=== PATIENT | female | born 1950 | race Caucasian/White ===

== ENCOUNTER 2021-05-18 13:51 | Inpatient (IN) ==
[2021-05-18] MEDS ORDERED: IOPAMIDOL 100 ML BOTTLE IV ONE (13:52)
[2021-05-18] MEDS ORDERED: ONDANSETRON 4 MG/2 ML VIAL IV ONE (14:02)
[2021-05-18] MEDS ORDERED: 0.9 % SODIUM CHLORIDE 1,000 ML IV ONE (14:02)
--- NOTE | 2021-05-18 14:09 | Emergency Department Note ---
Abdominal Pain HPI General Chief Complaint: Abdominal Pain Stated Complaint: RUQ Pain Time Seen by Provider: 05/18/21 13:53 Source: patient Mode of arrival: ambulatory Limitations: no limitations History of Present Illness HPI Narrative: Naz is a 71-year-old female who comes to the emergency department with compl aints of right lower quadrant abdominal pain worse with movement that is persisted ever since she woke up this morning at around 7 AM. The patient is complaining of nausea but has not vomited. She denies fever, urinary or bowel issues, or pain that radiates into her shoulder. She does not have any history of abdominal surgeries. The patient states that on the car ride over she did not notice any worsening discomfort but states that her pain is exacerbated when she stands and relieved when she lays back. She does not recall any harsh physical activity over the last few days but does report that she has been moving some televisions around in her home with her . She is not complaining of any back pain. Patient's not complaining of any urgency or frequency and has no history of kidney or ureteral stones. She states that initially she thought that she felt pain on the contralateral side of her right abdomen. She is not actively vomiting or retching in the emergency department. She has no other complaints today in the ER. No other modifying factors. MD Complaint: abdominal pain Related Data Home Medications Medication Instructions Recorded Confirmed pravastatin 80 mg tablet 40 mg PO QHS tab 04/06/21 Previous Rx's Medication Instructions Recorded hydrochlorothiazide 25 mg tablet 25 mg PO QDAY #90 tab 01/24/21 liothyronine 5 mcg tablet 5 mcg PO QDAY #90 tab 01/24/21 losartan 100 mg tablet 100 mg PO QDAY #90 tab 01/24/21 levothyroxine 137 mcg tablet 137 mcg PO QDAY #90 tab 01/31/21 amlodipine 10 mg tablet 10 mg PO QDAY #90 tab 03/14/21 carvedilol 12.5 mg tablet 6.25 mg PO DAILY #45 tab 04/06/21 Allergies Allergy/AdvReac Type Severity Reaction Status Date / Time Sulfa (Sulfonamide AdvReac Unknown Unknown Verified 05/18/21 13:53 Antibiotics) Review of Systems ROS ROS Narrative: Narrative: All systems ED: reviewed and negative except as stated. [facility] Narrative Patient History Narrative: Narrative: Medical/Surgical/Family History All Active Problems (Updated 05/18/21 @ 16:52 by Dae Mullen PA-C) Acute appendicitis (Acute) Lumbar stenosis with neurogenic claudication (Chronic) Chronic pain (Chronic) Hypertension (Chronic) Abnormal findings on diagnostic imaging of other specified body structures (Chronic) Low back pain (Chronic) Other intervertebral disc degeneration, lumbar region (Chronic) Degenerative lumbar disc (Chronic) Lumbar pain on palpation (Chronic) Medicare annual wellness visit, initial (Chronic) GERD with esophagitis (Chronic) Chest pain, atypical (Chronic) Hypokalemia (Chronic) Polymyalgia rheumatica syndrome (Chronic) Trochanteric bursitis, right hip (Chronic) Gastric ulcer requiring drug therapy (Chronic) Obesity (Chronic) Hypothyroidism, acquired (Chronic) Hypertension, essential (Chronic) Hyperlipemia (Chronic) DJD (degenerative joint disease) (Chronic) Medical History Abnormal findings on diagnostic imaging of other specified body structures Aftercare following joint replacement surgery Right Chest pain, atypical Chronic pain DJD (degenerative joint disease) HIP, L forefoot, knee Gastric ulcer requiring drug therapy Hyperlipemia Hypertension Hypertension, essential Hypothyroidism, acquired Low back pain Lumbar stenosis with neurogenic claudication Medicare annual wellness visit, initial Obesity Other intervertebral disc degeneration, lumbar region Polymyalgia rheumatica syndrome Trochanteric bursitis, right hip Surgical History History of colonoscopy (12/19/16) History of hammertoe correction History of surgery Right shoulder joint replacement History of total bilateral knee replacement Hx of biopsy (09/26/13) Bone-left hand metatarsal Hx of hysterectomy Hx of LASIK both eyes Hx of tonsillectomy Family History brother Cardiovascular disease age 44 CVA (cerebral vascular accident) Parkinson disease mother Cardiovascular disease multiple family members Diabetes mellitus sister Malignant neoplasm of esophagus Social History Smoking Status: Former smoker Alcohol Intake Frequency: does not drink Substance Use: does not use Exam Narrative Narrative: Narrative: General Limitations: no limitations General appearance: Present alert Head Head: Present atraumatic, normocephalic and normal inspection Eye Eye: Present normal appearance, PERRL and EOMI ENT ENT: Present normal exam, normal oropharynx and mucous membranes moist Neck Neck: Present normal inspection, full ROM and trachea midline Chest Chest: Present normal inspection and symmetric chest wall rise Respiratory Respiratory: Present normal lung sounds bilaterally and respiratory distress Cardiovascular Cardiovascular: Present regular rate and normal rhythm Adbominal Abdominal: Present rebound and tenderness at McBurney's Point Extremities Extremities: Present normal inspection, full ROM and normal capillary refill Back Back: Present normal inspection and full ROM Neurological Neurological: Present alert, oriented X3 and normal gait Psychiatric Psychiatric: Present normal affect and normal mood Skin Skin: Present warm (WNL), dry and normal color Course Course Course Narrative: 1409: IV placed, fluids been ordered for rehydration, Zofran for nausea. Patient has been offered pain medicine in the emergency department but at this point time she has rejected it. Basic labs been ordered as well as a urinalysis and a CT scan of the abdomen and pelvis has been ordered for evaluation of acute abdomen. 1544: Labs been reviewed and the patient does have an elevated white blood cell count of 15,[address] scan of the abdomen and pelvis was read back by the radiologist which shows severe acute appendicitis with inflamed pancreas measuring approximately 3 times its normal size. There is concern for rupture. After discussion of the CT scan findings I talked with Dr. Smith with general surgery who is going to evaluate the patient. Zosyn has been ordered fo r prophylaxis against infection and morphine has been given for pain. 1649: Patient seen by Dr. Smith and taken to the OR. Vital Signs Vital signs: Vital Signs Temperature 97.0 F 05/18/21 13:52 Pulse Rate 88 05/18/21 13:52 Respiratory Rate 18 05/18/21 13:52 Blood Pressure 184/83 05/18/21 13:52 Pulse Oximetry (%) 96 05/18/21 13:52 Temperature 97.0 F 05/18/21 13:52 Pulse Rate 89 05/18/21 16:17 Respiratory Rate 16 05/18/21 14:31 Blood Pressure 159/90 05/18/21 16:17 Pulse Oximetry (%) 96 05/18/21 16:17 [facility] Narrative Medical decision making narrative: 71-year-old female presents to the emergency department with abdominal pain onset early this morning located in her right lower quadrant. Patient had rebound tenderness on exam as well as elevated white blood cell count with left shift. CT scan of the abdomen and pelvis revealed a severe acute appendicitis that was near prerupture so general surgery was consulted and is now taking her to the OR for appendectomy. Patient was given Zosyn as well as fluid, Zofran, and morphine for pain in the ER. Patient discussed with Dr. Mann. Assessment: Acute appendicitis. Treatment: Patient taken to surgery by Dr. Smith. Fluid, zofran, morphine, and zosyn given in the ER for pain and infection. Lab Data Result diagrams: 05/18/21 14:20 05/18/21 14:20 Labs: Lab Results 05/18/21 05/18/21 05/18/21 Range/Units 14:01 14:20 14:20 WBC 15.1 H (4.5-11.0) K/mcL RBC 4.62 (3.59-5.38) M/mcL Hgb 13.2 (11.2-15.7) g/dL Hct 39.2 (34.1-44.9) % MCV 84.8 (80.0-100.0) fL MCH 28.6 (26.0-34.0) pg MCHC 33.7 (31.0-36.0) g/dL RDW 13.3 (11.5-14.5) % Plt Count 381 (140-440) K/mcL MPV 10.9 H (7.4-10.4) fL Neut % (Auto) 78.6 H (38.0-78.0) % Lymph % (Auto) 14.3 L (15.5-49.0) % [place] % (Auto) 5.5 (1.0-12.0) % Eos % (Auto) 1.1 (0.0-7.0) % Baso % (Auto) 0.5 (0.0-2.0) % Lymph # (Auto) 2.17 (1.50-4.80) K/mcL [place] # (Auto) 0.84 (0.10-0.90) K/mcL Eos # (Auto) 0.16 (0.00-0.70) K/mcL Baso # (Auto) 0.08 (0.00-0.30) K/mcL Absolute Neutrophils 11.89 H (1.80-8.00) K/mcL Sodium 133 (133-145) mmol/L Potassium 3.3 (3.3-5.1) mmol/L Chloride 97 (96-108) mmol/L Carbon Dioxide 22 (22-30) mmol/L Anion Gap 14.0 (8.0-16.0) BUN 14 (8-23) mg/dL Creatinine 0.7 (0.6-1.1) mg/dL POC Creatinine (0.6-1.2) mg/dL GFR Calculation 86 Glucose 96 (70-105) mg/dL Calcium 9.1 (8.6-10.4) mg/dL Total Bilirubin 0.6 (0.1-1.0) mg/dL AST 23 (<32) U/L ALT 44 H (<40) U/L Alkaline Phosphatase 107 (39-117) U/L Total Protein 6.7 (5.9-8.4) gm/dL Albumin 4.0 (3.2-5.2) gm/dL Globulin 2.7 (2.2-3.7) gm/dL Albumin/Globulin Ratio 1.5 (1.0-2.3) Urine Color Yellow Urine Appearance Hazy A (Clear) Urine pH 6.0 (5.0-9.0) Ur Specific [place] 1.009 (1.000-1.035) Urine Protein Negative (Negative) mg/dL Urine Glucose (UA) Negative (Negative) mg/dL Urine Ketones Negative (Negative) mg/dL Urine Occult Blood Negative (Negative) mg/dL Urine Nitrate Negative (Negative) Urine Bilirubin Negative (Negative) mg/dL Urine Urobilinogen Negative mg/dL Ur Leukocyte Esterase Negative (Negative) /uL Ur Culture Indicated? No 05/18/21 Range/Units 14:20 WBC (4.5-11.0) K/mcL RBC (3.59-5.38) M/mcL Hgb (11.2-15.7) g/dL Hct (34.1-44.9) % MCV (80.0-100.0) fL MCH (26.0-34.0) pg MCHC (31.0-36.0) g/dL RDW (11.5-14.5) % Plt Count (140-440) K/mcL MPV (7.4-10.4) fL Neut % (Auto) (38.0-78.0) % Lymph % (Auto) (15.5-49.0) % [place] % (Auto) (1.0-12.0) % Eos % (Auto) (0.0-7.0) % Baso % (Auto) (0.0-2.0) % Lymph # (Auto) (1.50-4.80) K/mcL [place] # (Auto) (0.10-0.90) K/mcL Eos # (Auto) (0.00-0.70) K/mcL Baso # (Auto) (0.00-0.30) K/mcL Absolute Neutrophils (1.80-8.00) K/mcL Sodium (133-145) mmol/L Potassium (3.3-5.1) mmol/L Chloride (96-108) mmol/L Carbon Dioxide (22-30) mmol/L Anion Gap (8.0-16.0) BUN (8-23) mg/dL Creatinine (0.6-1.1) mg/dL POC Creatinine 0.6 (0.6-1.2) mg/dL GFR Calculation Glucose (70-105) mg/dL Calcium (8.6-10.4) mg/dL Total Bilirubin (0.1-1.0) mg/dL AST (<32) U/L ALT (<40) U/L Alkaline Phosphatase (39-117) U/L Total Protein (5.9-8.4) gm/dL Albumin (3.2-5.2) gm/dL Globulin (2.2-3.7) gm/dL Albumin/Globulin Ratio (1.0-2.3) Urine Color Urine Appearance (Clear) Urine pH (5.0-9.0) Ur Specific [place] (1.000-1.035) Urine Protein (Negative) mg/dL Urine Glucose (UA) (Negative) mg/dL Urine Ketones (Negative) mg/dL Urine Occult Blood (Negative) mg/dL Urine Nitrate (Negative) Urine Bilirubin (Negative) mg/dL Urine Urobilinogen mg/dL Ur Leukocyte Esterase (Negative) /uL Ur Culture Indicated? ED POC Tests ED POC Tests: EVARISTO - SARS Antigen Negative Discharge Plan Patient/Caregiver Discharge Instructions Pt seen by CEO ZIFF DAVIS/PA only: Yes Clinical Impression: Acute appendicitis Instructions: Acute Abdominal Pain (ED) Patient Disposition: Xfer As Inpt ([facility]) Follow up with: Teja Alejo DO [Primary Care Provider] - Prescriptions: No Action losartan 100 mg tablet 100 mg PO QDAY Qty: 90 1RF liothyronine 5 mcg tablet 5 mcg PO QDAY Qty: 90 1RF hydrochlorothiazide 25 mg tablet 25 mg PO QDAY Qty: 90 1RF levothyroxine 137 mcg tablet 137 mcg PO QDAY Qty: 90 1RF amlodipine 10 mg tablet 10 mg PO QDAY Qty: 90 1RF pravastatin 80 mg tablet 40 mg PO QHS 0RF carvedilol 12.5 mg tablet 6.25 mg PO DAILY Qty: 45 3RF
[2021-05-18 15:16] LABS: Basophils # (Auto) 0.08 K/mcL (0.00-0.30); Basophils % (Auto) 0.5 % (0.0-2.0); Eosinophils # (Auto) 0.16 K/mcL (0.00-0.70); Eosinophils % (Auto) 1.1 % (0.0-7.0); Hematocrit 39.2 % (34.1-44.9); Hemoglobin 13.2 g/dL (11.2-15.7); Lymphocytes # (Auto) 2.17 K/mcL (1.50-4.80); Lymphocytes % (Auto) 14.3 % (15.5-49.0); Mean Cell Volume 84.8 fL (80.0-100.0); Mean Corpuscular HGB Conc 33.7 g/dL (31.0-36.0); Mean Platelet Volume 10.9 fL (7.4-10.4); Monocytes # (Auto) 0.84 K/mcL (0.10-0.90); Monocytes % (Auto) 5.5 % (1.0-12.0); Neutrophils % (Auto) 78.6 % (38.0-78.0); Platelet Count 381 K/mcL (140-440); RBC 4.62 M/mcL (3.59-5.38); Red Cell Distribution Width 13.3 % (11.5-14.5); WBC 15.1 K/mcL (4.5-11.0)
[2021-05-18 15:21] LABS: Appearance,Urine HAZY (Clear); Bilirubin,Urine Negative (Negative); Color,Urine YELLOW; Culture Indicated,Urine No; Glucose,Urine (UA) Negative (Negative); Ketones,Urine Negative (Negative); Leukocyte Esterase,Urine Negative /uL (Negative); Nitrate,Urine Negative (Negative); Protein,Urine Negative (Negative); Specific Gravity,Urine 1.009 (1.000-1.035); Urine Blood Negative (Negative); Urobilinogen,Urine Negative
[2021-05-18 15:33] LABS: ALT/SGPT 44 U/L (<40); AST/SGOT 23 U/L (<32); Albumin/Globulin Ratio 1.5 (1.0-2.3); Alkaline Phosphatase 107 U/L (39-117); Bilirubin,Total 0.6 mg/dL (0.1-1.0); Blood Urea Nitrogen 14 mg/dL (8-23); Calcium 9.1 mg/dL (8.6-10.4); Carbon Dioxide 22 mmol/L (22-30); Chloride 97 mmol/L (96-108); Globulin 2.7 gm/dL (2.2-3.7); Glomerular Filtration Rate 86; Glucose 96 mg/dL (70-105)
[2021-05-18] MEDS ORDERED: PIPERACILLIN SODIUM/TAZOBACTAM 3.375 GM in DEXTROSE 5% IN WATER 50 ML IV ONE (15:43)
[2021-05-18] MEDS ORDERED: morphine 4 MG/ML VIAL IV PRN (15:44)
--- NOTE | 2021-05-18 15:44 | Cat Scan Report ---
CLINICAL INFORMATION: Right lower quadrant pain and rebound tenderness COMPARISON: None. TECHNIQUE: Following enteric contrast, 80 cc of Isovue-370 were injected intravenously, and 60 seconds later, 0.625 mm helical slices were obtained from the mid heart through the subtrochanteric regions. Following reconstruction, 2.5 mm sagittal, coronal and axial reformatted images were processed and reviewed at bone, lung and soft tissue windows. Five minutes later, 0.625 mm helical slices were obtained from the mid heart through the kidneys and viewed at soft tissue windows.The exam was performed using radiation dose optimization techniques including, but not limited to, automated exposure control, adjustment of the mA and/or kV according to patient size and use of iterative reconstruction technique. FINDINGS: The lung bases are clear. No effusions. The visualized heart is grossly normal. Moderate hiatal hernia consisting of the gastric fundus appreciated. Abdominal images show the gallbladder is unremarkable. There is mild dilatation of the suprapancreatic common bile duct-9 mm to 2.2 cm periampullary diverticulum may extrinsically compressed intrapancreatic common bile duct. The liver, adrenal glands, spleen, pancreas and aorta, including aortic branches, are normal in size, configuration and attenuation without focal lesion. A 6.1 cm cyst arising from the anterior mid right kidney. It has a single septation in the anterior portion no solid components. The remainder of both kidneys is normal. There is no free air or adenopathy. Pelvic images show normal urinary bladder. Hysterectomy and oophorectomy changes noted. The appendix, located in the medial pericecal region is massively dilated spanning 15 mm. There is also wall thickening and enhancement moderate periappendiceal phlegmon. A long (3 cm) appendicolith is seen in the medial aspect of the appendix. Small and large bowel are unremarkable. Bone windows show no osseous abnormality. IMPRESSION: 1. Severe appendicitis. Appendix located in the medial pericecal region. There is no abscess or other complication. 2. 6.1 cm cyst in the anterior mid right kidney. 3. Moderate hiatal hernia 4. 2.2 cm periampullary diverticulum. This may result in mild extrinsic compression of the intrapancreatic common bile duct. Suprapancreatic bile duct is mildly dilated-9 mm Interpreted and Authenticated by: Teja Sheets 05/18/21
--- NOTE | 2021-05-18 17:27 | General Surgery Consult Note ---
HPI Data of Consult Patient: new to practice Consult date: 05/18/21 Primary Care Provider: Teja Alejo DO Consult Narrative Chief complaint: RLQ Abdominal Pain Reason for consult: Acute Appendicitis History of present illness: Naz is seen in consultation today with onset of increasingly severe RLQ abdominal pain that first came on this morning. The pain worsened throughout the day to the point that she presented to the ER for further work up. CT scan has confirmed findings of Acute Appendicitis and we were asked to see her in consultation. She denies any substantial cardiac or pulmonary issues and is not currently on any oral anticoagulation. She has had a prior Hysterectomy but denies any other abdominal surgery. cc:: CC: Review of Systems All systems: reviewed and no additional remarkable complaints except as stated PFSH PFSH All Active Problems (Updated 05/18/21 @ 16:52 by Dae Mullen PA-C) Acute appendicitis (Acute) Lumbar stenosis with neurogenic claudication (Chronic) Chronic pain (Chronic) Hypertension (Chronic) Abnormal findings on diagnostic imaging of other specified body structures (Chronic) Low back pain (Chronic) Other intervertebral disc degeneration, lumbar region (Chronic) Degenerative lumbar disc (Chronic) Lumbar pain on palpation (Chronic) Medicare annual wellness visit, initial (Chronic) GERD with esophagitis (Chronic) Chest pain, atypical (Chronic) Hypokalemia (Chronic) Polymyalgia rheumatica syndrome (Chronic) Trochanteric bursitis, right hip (Chronic) Gastric ulcer requiring drug therapy (Chronic) Obesity (Chronic) Hypothyroidism, acquired (Chronic) Hypertension, essential (Chronic) Hyperlipemia (Chronic) DJD (degenerative joint disease) (Chronic) Medical History Abnormal findings on diagnostic imaging of other specified body structures Aftercare following joint replacement surgery Right Chest pain, atypical Chronic pain DJD (degenerative joint disease) HIP, L forefoot, knee Gastric ulcer requiring drug therapy Hyperlipemia Hypertension Hypertension, essential Hypothyroidism, acquired Low back pain Lumbar stenosis with neurogenic claudication Medicare annual wellness visit, initial Obesity Other intervertebral disc degeneration, lumbar region Polymyalgia rheumatica syndrome Trochanteric bursitis, right hip Surgical History History of colonoscopy (12/19/16) History of hammertoe correction History of surgery Right shoulder joint replacement History of total bilateral knee replacement Hx of biopsy (09/26/13) Bone-left hand metatarsal Hx of hysterectomy Hx of LASIK both eyes Hx of tonsillectomy Family History brother Cardiovascular disease age 44 CVA (cerebral vascular accident) Parkinson disease mother Cardiovascular disease multiple family members Diabetes mellitus sister Malignant neoplasm of esophagus Social History marital status: education level: high school occupational status: retired physical activity: walking and aerobics frequency: 5-6 times per week smoking status: Former smoker quit date: 03/12/80 alcohol intake frequency: does not drink substance use type: does not use MEDS/ALLERGIES Home Medications and Allergies Home Medications Medication Instructions Recorded Confirmed Type hydrochlorothiazide 25 mg tablet 25 mg PO QDAY #90 tab 01/24/21 04/06/21 Rx liothyronine 5 mcg tablet 5 mcg PO QDAY #90 tab 01/24/21 04/06/21 Rx losartan 100 mg tablet 100 mg PO QDAY #90 tab 01/24/21 04/06/21 Rx levothyroxine 137 mcg tablet 137 mcg PO QDAY #90 tab 01/31/21 04/06/21 Rx amlodipine 10 mg tablet 10 mg PO QDAY #90 tab 03/14/21 04/06/21 Rx carvedilol 12.5 mg tablet 6.25 mg PO DAILY #45 tab 04/06/21 04/06/21 Rx pravastatin 80 mg tablet 40 mg PO QHS tab 04/06/21 History Allergies Allergy/AdvReac Type Severity Reaction Status Date / Time Sulfa (Sulfonamide AdvReac Unknown Unknown Verified 05/18/21 13:53 Antibiotics) Physical Examination Vital Signs Vital signs: Temp Pulse Resp BP Pulse Ox 97.0 F 89 16 159/90 96 05/18/21 13:52 05/18/21 16:17 05/18/21 14:31 05/18/21 16:17 05/18/21 16:17 General physical appearance General physical exam: well developed and no distress Eyes Eye exam: normal ocular movement Head Head exam IM: Present atraumatic, normal inspection and normocephalic Neck Neck exam: no lymphadenopathy Cardiovascular Cardiovascular exam IM: Present normal rate and rhythm and RRR Respiratory Respiratory exam: normal respiratory effort Abdomen Abdomen: Present soft (focal tenderness and guarding in the RLQ with remainder of belly soft and benign ) Integumentary Integumentary: Present other (normal appearing intact skin ) Neurologic Neurologic: Present other (awake, conversant and grossly intact ) Results Labs Result diagrams: 05/18/21 14:20 05/18/21 14:20 Labs: Abnormal lab results 05/18/21 05/18/21 05/18/21 Range/Units 14:01 14:20 14:20 WBC 15.1 H (4.5-11.0) K/mcL MPV 10.9 H (7.4-10.4) fL Neut % (Auto) 78.6 H (38.0-78.0) % Lymph % (Auto) 14.3 L (15.5-49.0) % Absolute Neutrophils 11.89 H (1.80-8.00) K/mcL ALT 44 H (<40) U/L Urine Appearance Hazy A (Clear) Diabetes panel 05/18/21 Range/Units 14:20 Sodium 133 (133-145) mmol/L Potassium 3.3 (3.3-5.1) mmol/L Chloride 97 (96-108) mmol/L Carbon Dioxide 22 (22-30) mmol/L BUN 14 (8-23) mg/dL Creatinine 0.7 (0.6-1.1) mg/dL Glucose 96 (70-105) mg/dL Calcium 9.1 (8.6-10.4) mg/dL AST 23 (<32) U/L ALT 44 H (<40) U/L Alkaline Phosphatase 107 (39-117) U/L Total Protein 6.7 (5.9-8.4) gm/dL Albumin 4.0 (3.2-5.2) gm/dL Calcium panel 05/18/21 Range/Units 14:20 Calcium 9.1 (8.6-10.4) mg/dL Albumin 4.0 (3.2-5.2) gm/dL Pituitary panel 05/18/21 Range/Units 14:20 Sodium 133 (133-145) mmol/L Potassium 3.3 (3.3-5.1) mmol/L Chloride 97 (96-108) mmol/L Carbon Dioxide 22 (22-30) mmol/L BUN 14 (8-23) mg/dL Creatinine 0.7 (0.6-1.1) mg/dL Glucose 96 (70-105) mg/dL Calcium 9.1 (8.6-10.4) mg/dL Adrenal panel 05/18/21 Range/Units 14:20 Sodium 133 (133-145) mmol/L Potassium 3.3 (3.3-5.1) mmol/L Chloride 97 (96-108) mmol/L Carbon Dioxide 22 (22-30) mmol/L BUN 14 (8-23) mg/dL Creatinine 0.7 (0.6-1.1) mg/dL Glucose 96 (70-105) mg/dL Calcium 9.1 (8.6-10.4) mg/dL Total Bilirubin 0.6 (0.1-1.0) mg/dL AST 23 (<32) U/L ALT 44 H (<40) U/L Alkaline Phosphatase 107 (39-117) U/L Total Protein 6.7 (5.9-8.4) gm/dL Albumin 4.0 (3.2-5.2) gm/dL All other labs normal. A/P Assessment and plan (1) Acute appendicitis: Assessment and plan: Acute Appendicitis Treatment options are discussed at length and surgery is recommended. Risks, benefits, potential complications and alternative treatment options are all discussed at length including the option for non operative mgmt. She would like to proceed with surgery and all questions and concerns are addressed. We will start IV ABs, make her NPO and proceed with Laparoscopic Appendectomy at the ORs availability. Status: Acute Time Spent With Patient Time: Total time spent is greater than 50% in coordination of care (as documented) at patient's floor/unit and/or counseling patient:
[2021-05-18] MEDS ORDERED: KETAMINE 50 MG/ML Syringe (ANEST) IV ONE (19:10)
[2021-05-18] MEDS ORDERED: ONDANSETRON 4 MG/2 ML VIAL ONE (19:10)
[2021-05-18] MEDS ORDERED: LIDOCAINE HCL/PF 100 MG/5 ML SYRINGE IV ONE (19:10)
[2021-05-18] MEDS ORDERED: fentaNYL 100 MCG/2 ML VIAL IV ONE (19:10)
[2021-05-18] MEDS ORDERED: PROPOFOL 200 MG/20 ML VIAL IV ONE (19:10)
[2021-05-18] MEDS ORDERED: MAGNESIUM SULFATE 2 GM/50 ML BAG IV ONE (19:10)
[2021-05-18] MEDS ORDERED: DEXAMETHASONE 10 MG/ML VIAL ONE (19:10)
[2021-05-18] MEDS ORDERED: GLYCOPYRROLATE 0.2 MG/ML VIAL IV ONE (19:10)
[2021-05-18] MEDS ORDERED: ceFAZolin 2 GM in DEXTROSE 5% IN WATER 50 ML IV SCH (19:30)
[2021-05-18] MEDS ORDERED: NALOXONE HCL 0.4 MG/ML VIAL IV PRN ×2 (19:34→21:29)
[2021-05-18] MEDS ORDERED: BENZOCAINE/MENTHOL 1 LOZENGE PO PRN (19:34)
[2021-05-18] MEDS ORDERED: LABETALOL 5 MG/ML ML IV PRN (19:34)
[2021-05-18] MEDS ORDERED: METHOCARBAMOL 1,000 MG/10 ML VIAL IV PRN (19:34)
[2021-05-18] MEDS ORDERED: FLUMAZENIL 0.1 MG/ML ML IV PRN (19:34)
[2021-05-18] MEDS ORDERED: METOPROLOL TARTRATE 5 MG/5 ML VIAL IV PRN (19:34)
[2021-05-18] MEDS ORDERED: IPRATROPIUM/ALBUTEROL 3 ML AMPUL.NEB NEB PRN (19:34)
[2021-05-18] MEDS ORDERED: LACTATED RINGERS 250 ML IV PRN (19:34)
[2021-05-18] MEDS ORDERED: HYDROmorphone 0.5 MG/0.5 ML SYRINGE IV PRN (19:34)
[2021-05-18] MEDS ORDERED: ACETAMINOPHEN 1,000 MG/100 ML BAG IV ONE (19:34)
[2021-05-18] MEDS ORDERED: ONDANSETRON 4 MG/2 ML VIAL IV PRN (19:34)
[2021-05-18] MEDS ORDERED: LACTATED RINGERS 1,000 ML IV SCH (19:45)
[2021-05-18] MEDS ORDERED: BUPIVACAINE W/EPI 0.5% 50 ML VIAL IJ ONE (20:21)
[2021-05-18] MEDS: fentaNYL 100 MCG/2 ML VIAL IV PRN ×4 (21:11→21:17)
[2021-05-18] MEDS ORDERED: ACETAMINOPHEN 325 MG TABLET PO PRN (21:29)
--- NOTE | 2021-05-18 21:40 | Brief Operative Note ---
Brief Operative Note Date of procedure: 05/18/21 Pre-op diagnosis: Acute Appendicitis Post-op diagnosis: same Procedure: Laparoscopic Appendectomy Grafts/Implants: No Anesthesia: GETA Findings: acutely inflamed necrotic, gangrenous appendix Complications: none Surgeon: Ehsan Smith Estimated blood loss (cc): 5 Specimens Removed/Pathology: other (appendix ) Condition: stable Disposition: PACU
[2021-05-18] MEDS ORDERED: DEXTROSE 5%-1/2NS W/20MEQ KCL 1,000 ML IV SCH (21:45)
[2021-05-18] MEDS: 0.9 % SODIUM CHLORIDE 10 ML SYRINGE IV SCH (22:14)
[2021-05-18] MEDS: PIPERACILLIN SODIUM/TAZOBACTAM 3.375 GM in DEXTROSE 5% IN WATER 50 ML IV SCH (22:55)
[2021-05-18] MEDS: HYDROmorphone 1 MG/ML SYRINGE IV PRN (23:14)
[2021-05-19] MEDS: ONDANSETRON 4 MG/2 ML VIAL IV PRN ×3 (01:29→12:04)
[2021-05-19] MEDS: oxyCODONE HCL 5 MG TABLET PO PRN ×2 (01:43→05:52)
[2021-05-19] MEDS ORDERED: oxyCODONE HCL 5 MG TABLET PO ONE (01:49)
[2021-05-19] MEDS: PIPERACILLIN SODIUM/TAZOBACTAM 3.375 GM in DEXTROSE 5% IN WATER 50 ML IV SCH ×5 (03:56→23:18)
[2021-05-19] MEDS ORDERED: ONDANSETRON 4 MG/2 ML VIAL ONE (05:34)
[2021-05-19] MEDS: oxyCODONE HCL 5 MG TABLET PO ONE ×2 (05:50→05:52)
[2021-05-19] MEDS: 0.9 % SODIUM CHLORIDE 10 ML SYRINGE IV SCH ×3 (05:52→20:52)
[2021-05-19 06:34] LABS: Hematocrit 38.1 % (34.1-44.9); Hemoglobin 12.9 g/dL (11.2-15.7); Mean Cell Volume 86.4 fL (80.0-100.0); Mean Corpuscular HGB Conc 33.9 g/dL (31.0-36.0); Mean Platelet Volume 10.4 fL (7.4-10.4); Platelet Count 333 K/mcL (140-440); RBC 4.41 M/mcL (3.59-5.38); Red Cell Distribution Width 13.4 % (11.5-14.5); WBC 21.2 K/mcL (4.5-11.0)
[2021-05-19 07:10] LABS: Blood Urea Nitrogen 9 mg/dL (8-23); Calcium 8.2 mg/dL (8.6-10.4); Carbon Dioxide 27 mmol/L (22-30); Chloride 97 mmol/L (96-108); Glomerular Filtration Rate 73; Glucose 168 mg/dL (70-105)
[2021-05-19] MEDS ORDERED: POTASSIUM CHLORIDE 20 MEQ TABLET PO ONE ×2 (08:00→12:00)
--- NOTE | 2021-05-19 10:01 | General Surgery Progress Note ---
SUBJECTIVE Subjective Patient information: Note initiated : 05/19/21 at 9:56 am Service Date, if different from initiated Date: [] Patient: Naz Jeffries 71 y/o F admitted on 05/18/21 for RUQ Pain. Chief Complaint: [POD #1 Lap Appendectomy] Feels poorly this am, nausea and vomiting last night, not keeping anything down, pain is reasonably well controlled, not passing any gas Constitutional Vitals: Vital Signs Temp Pulse Resp BP Pulse Ox 98.9 F 73 23 H 129/68 89 L 05/19/21 08:00 05/19/21 08:00 05/19/21 08:00 05/19/21 08:00 05/19/21 08:00 Period Temp Pulse Resp BP Sys/Farr Pulse Ox Last 24 Hr 96.8 F-99.0 F 62-91 11-23 79-184/38-93 86-99 Intake and Output 05/18/21 05/19/21 05/19/21 21:59 05:59 13:59 Intake Total 3850 250 Output Total 50 505 Balance 3800 -255 Weight 237 lb 8 oz Intake & Output: Intake & Output 05/18/21 05/19/21 05/19/21 21:59 05:59 13:59 Intake Total 3850 250 Output Total 50 505 Balance 3800 -255 Weight 237 lb 8 oz Intake: IV 1150 100 Sodium Chloride 0.9% 1,000 ml @ 1000 Wide Open IV BOLUS ONE Rx#: [id number] Zosyn 3.375 gm In Dextrose 5% 50 100 in Water 50 ml @ 100 mls/hr IV Q6H [facility] Rx#:[id number] Oral 150 IV - Manual Only 2700 Output: Drainage 50 30 Abdomen 50 30 Void Amount 375 Emesis 100 Other: Urine Appearance Clear Urine Color Bright Yellow # Unmeasured Emesis 1 Exam: resting comfortably Head Head exam: Present atraumatic, normal inspection and normocephalic Respiratory Additional comments: no respiratory distress Cardiovascular Cardiovascular exam: Present normal rate and rhythm and RRR GI/Abdominal Additional comments: soft and non distended, obese, drain is slightly turbid but non enteric Extremities Exam Additional comments: well perfused A/P Assessment and plan (1) Acute appendicitis: Assessment and plan: POD #1 Lap Appendectomy Not tolerating orals at this time - will d/c oral pain meds, add additional antiemetics, increase IVFs and make her NPO for now except for ice chips If continues to have emesis, will place NGT and image - ? ileus vs early post op SBO Will also broaden IV AB coverage No discharge planned for today Status: Acute Time Spent With Patient Time: Total time spent is greater than 50% in coordination of care (as documented) at patient's floor/unit and/or counseling patient:
[2021-05-19] MEDS: CIPROFLOXACIN 400 MG/200 ML BAG IV SCH ×2 (10:34→20:51)
[2021-05-19] MEDS: PANTOPRAZOLE 40 MG VIAL IV SCH (10:35)
[2021-05-19] MEDS: DEXTROSE 5%-1/2NS W/20MEQ KCL 1,000 ML IV SCH ×4 (10:35→23:22)
[2021-05-19] MEDS: METOCLOPRAMIDE 10 MG/2 ML VIAL IV SCH ×3 (11:58→23:18)
--- NOTE | 2021-05-19 12:31 | Operative Note ---
DATE OF OPERATION: 05/18/2021 PREOPERATIVE DIAGNOSIS: Acute appendicitis. POSTOPERATIVE DIAGNOSIS: Acute appendicitis. OPERATIVE PROCEDURE: Laparoscopic appendectomy with washout and drain placement. SURGEON: Ehsan Smith M.D. ANESTHESIA: General. PREOPERATIVE MEDICATIONS: Zosyn 3.375 g IV and Ancef 2 g IV. INDICATIONS FOR PROCEDURE: The patient is a 71-year-old female who presented to the emergency room on 05/18/2021 with what she described as a 1-day history of worsening right lower quadrant pain. She was tender in that area. CT scan confirmed evidence of acute appendicitis. She had focal peritoneal findings in the right lower quadrant. The remainder of abdominal exam was benign. Options were discussed with her including the potential for nonoperative management versus our recommendation for surgery. Risks, benefits, potential complications, and alternative treatment options were all discussed at length, including but not limited to bleeding, infection, cosmetic dissatisfaction, abnormal scarring, potential for injury to surrounding structures, potential need for additional surgery, conversion to open, drain placement, stump leaks, infections and other concerns, and then again we did discuss the option for IV antibiotic management, but we recommended surgery, and she certainly concurred with the recommendation. PROCEDURE IN DETAIL: The patient was taken to the OR and placed supine on the OR table, placed under general anesthesia and intubated. Bilateral SCDs were applied and pressure sensitive areas were carefully padded. Her left arm was tucked at her side. Her right arm was placed on an arm board. The entire OR team worked to position her carefully and comfortably on the OR table. Once her abdomen was widely prepped and draped in a sterile fashion, procedure began with access to the peritoneal cavity utilizing a 0-degree, 5 mm scope through a Visiport in the right upper abdomen. Once we had obtained peritoneal access, pneumoperitoneum was obtained with high-flow CO2 insufflation, again, utilizing the 0-degree scope with a 5 mm trocar in the right upper abdomen. We then examined carefully the area of access to make sure there was no evidence of injury; none was seen. We then changed out the 0-degree scope for a 30-degree scope and placed our remaining trocars. This included a 5 mm periumbilical trocar and a 5 mm left lower abdominal trocar as well. We then changed out the 5 mm right upper abdominal trocar for a 12 mm trocar after re-siting the camera to the periumbilical trocar. We then airplaned the patient towards the left side in a slight Trendelenburg position, and we were able to visualize the right colon and the base of the cecum. Bowel was fairly adherent here. It was gently dissected away to reveal a highly gangrenous and necrotic and already ruptured appendix with evidence of some localized contamination. There was fulminant gangrene and necrosis throughout. We were able to dissect bluntly adhesions, including the bowel away from this. I was able to visualize the cecum and the terminal ileum entering the cecum at the ileocecal valve. We elevated the appendix away from this area. She had a very broad and inflamed mesoappendix. This was taken down with sequential transection utilizing the 35 mm endovascular Onset Flex stapler. After we had fully mobilized the appendix on itself and taken down all the areas of the mesoappendix, we could visualize a very necrotic appendiceal base down to a confluent area of necrosis on the cecum itself. We brought the intended staple line just below this, making sure that the ileocecal valve appeared to be well clear, which it did from external landmarks and then went ahead and transected the appendix, taking a small portion of the cecum with it to leave well-vascularized tissues in the staple line to minimize risk of post-procedural leak. This was done with two sequential stapler loads and this fully liberated the appendix, which was placed in an EndoCatch and then taken out through the right upper abdominal trocar site. It was examined on the back table and sent to Pathology. Additional inspection of the area revealed a large stool-like appendicolith in the area of the dissection bed. It was placed in a separate EndoCatch and removed through the right upper abdominal trocar as well. There was no other visible articular debris in the area. The area was gently irrigated out. There was no evidence of any residual purulence or contamination. I elected to bring a drain in and we brought in a flat 10-Portuguese JIMBO through the left lower abdominal trocar site and positioned it alongside the dissection bed and down in the pelvis. The area was irrigated again. We made sure there was no active bleeding or hemorrhage. There appeared to be none. The staple line was inspected on the cecum itself and it appeared to be well perfused and intact. We then removed the right upper abdominal trocar under direct vision to make sure there was no evidence of bleeding or hemorrhage; none was seen. The 5 mm periumbilical trocar was then removed as well. Pneumoperitoneum was relieved and this completed this portion of the procedure. I then closed the fascia utilizing a single interrupted 0 Vicryl suture at the 12 mm trocar site in the right upper abdomen. We then closed the incisions with interrupted 3-0 Vicryl sutures in the superficial and subdermal layers and the skin was closed with interrupted 4-0 Monocryl sutures where appropriate. Steri-Strips and sterile dressings were applied. The drain was secured in place with a 3-0 silk suture and placed to bulb suction. Sterile dressings were applied. The patient was awakened, extubated, and transferred to PACU in satisfactory condition. There were no apparent complications or issues. Sponge and instrument counts were correct. Findings were discussed above. BW:drew Job ID: [id number] Doc ID: [id number] Ehsan Smith M.D.
[2021-05-19] MEDS: HYDROmorphone 1 MG/ML SYRINGE IV PRN ×2 (14:52→20:52)
[2021-05-20] MEDS: HYDROmorphone 1 MG/ML SYRINGE IV PRN ×2 (01:47→06:52)
[2021-05-20] MEDS: 0.9 % SODIUM CHLORIDE 10 ML SYRINGE IV SCH ×3 (05:17→21:17)
[2021-05-20] MEDS: PIPERACILLIN SODIUM/TAZOBACTAM 3.375 GM in DEXTROSE 5% IN WATER 50 ML IV SCH ×4 (05:17→23:21)
[2021-05-20] MEDS: METOCLOPRAMIDE 10 MG/2 ML VIAL IV SCH ×4 (05:17→23:21)
[2021-05-20 06:39] LABS: Hematocrit 35.8 % (34.1-44.9); Hemoglobin 12.2 g/dL (11.2-15.7); Mean Cell Volume 86.5 fL (80.0-100.0); Mean Corpuscular HGB Conc 34.1 g/dL (31.0-36.0); Mean Platelet Volume 10.6 fL (7.4-10.4); Platelet Count 299 K/mcL (140-440); RBC 4.14 M/mcL (3.59-5.38); Red Cell Distribution Width 13.7 % (11.5-14.5); WBC 18.8 K/mcL (4.5-11.0)
[2021-05-20] MEDS: ONDANSETRON 4 MG/2 ML VIAL IV PRN ×2 (06:54→15:30)
[2021-05-20] MEDS: PANTOPRAZOLE 40 MG VIAL IV SCH (06:56)
[2021-05-20 07:10] LABS: Blood Urea Nitrogen 10 mg/dL (8-23); Calcium 7.9 mg/dL (8.6-10.4); Carbon Dioxide 23 mmol/L (22-30); Chloride 100 mmol/L (96-108); Glomerular Filtration Rate 73; Glucose 119 mg/dL (70-105)
[2021-05-20] MEDS: CIPROFLOXACIN 400 MG/200 ML BAG IV SCH ×2 (08:35→21:16)
--- NOTE | 2021-05-20 09:31 | General Surgery Progress Note ---
SUBJECTIVE Subjective Patient information: Note initiated : 05/20/21 at 9:27 am Service Date, if different from initiated Date: [] Patient: Naz Jeffries 71 y/o F admitted on 05/19/21 for RUQ Pain. Chief Complaint: [POD #2 Lap Appendectomy for Acute Gangrenous Appendicitis] Feeling better this am, hungry, still no flatus Constitutional Vitals: Vital Signs Temp Pulse Resp BP Pulse Ox 97.7 F 85 16 117/66 94 05/20/21 07:10 05/20/21 07:10 05/20/21 07:10 05/20/21 07:10 05/20/21 07:10 Period Temp Pulse Resp BP Sys/Farr Pulse Ox Last 24 Hr 97.3 F-99.3 F 66-85 16-20 109-126/55-71 89-95 Intake and Output 05/19/21 05/20/21 05/20/21 21:59 05:59 13:59 Intake Total 1500 400 50 Output Total 425 185 100 Balance 1075 215 -50 Weight 234 lb 8 oz Intake & Output: Intake & Output 05/19/21 05/20/21 05/20/21 21:59 05:59 13:59 Intake Total 1500 400 50 Output Total 425 185 100 Balance 1075 215 -50 Weight 234 lb 8 oz Intake: IV 1050 250 50 Dextrose 5%-1/2Ns W/20Meq KCl 1 1000 ,000 ml @ 125 mls/hr IV .Q8H DEVIN Rx#:[id number] Zosyn 3.375 gm In Dextrose 5% 50 50 50 in Water 50 ml @ 100 mls/hr IV Q6H DEVIN Rx#:[id number] Oral 450 150 Output: Drainage 25 35 Abdomen 25 35 Void Amount 400 150 100 Other: Urine Appearance Clear Clear Clear Urine Color Dark Yellow Light Lupe Light Lupe Urine Odor Strong General appearance: cooperative and no acute distress Respiratory Additional comments: normal respiratory effort without distress Cardiovascular Cardiovascular exam: Present normal rate and rhythm and RRR GI/Abdominal Additional comments: belly soft and non distended, drain serous and benign in appearance, mild tenderness Extremities Exam Extremities exam: Present normal inspection A/P Assessment and plan (1) Acute appendicitis: Assessment and plan: POD #2 Lap Appendectomy for Acute Gangrenous Appendicitis Doing Better this am WBC down today with addition of IV Cipro Increase activity Small clears ok Will need to stay in another day for IV ABs Status: Acute Time Spent With Patient Time: Total time spent is greater than 50% in coordination of care (as documented) at patient's floor/unit and/or counseling patient:
[2021-05-20] MEDS ORDERED: ACETAMINOPHEN 650 MG/65 ML BAG IV SCH (10:20)
[2021-05-20] MEDS: DEXTROSE 5%-1/2NS W/20MEQ KCL 1,000 ML IV SCH ×2 (10:52→21:54)
[2021-05-20] MEDS: ACETAMINOPHEN 325 MG TABLET PO SCH ×2 (11:00→17:48)
[2021-05-20] MEDS: HYDROCHLOROTHIAZIDE 25 MG TABLET PO SCH (11:00)
[2021-05-21] MEDS: ONDANSETRON 4 MG/2 ML VIAL IV PRN (02:09)
[2021-05-21] MEDS: ACETAMINOPHEN 325 MG TABLET PO SCH ×3 (02:09→18:39)
[2021-05-21] MEDS: PIPERACILLIN SODIUM/TAZOBACTAM 3.375 GM in DEXTROSE 5% IN WATER 50 ML IV SCH (05:27)
[2021-05-21] MEDS: METOCLOPRAMIDE 10 MG/2 ML VIAL IV SCH ×4 (05:27→23:40)
[2021-05-21] MEDS: 0.9 % SODIUM CHLORIDE 10 ML SYRINGE IV SCH ×6 (05:27→23:40)
[2021-05-21 07:04] LABS: Basophils # (Auto) 0.04 K/mcL (0.00-0.30); Basophils % (Auto) 0.2 % (0.0-2.0); Eosinophils # (Auto) 0.07 K/mcL (0.00-0.70); Eosinophils % (Auto) 0.3 % (0.0-7.0); Hemoglobin 13.2 g/dL (11.2-15.7); Lymphocytes # (Auto) 1.48 K/mcL (1.50-4.80); Lymphocytes % (Auto) 6.8 % (15.5-49.0); Mean Cell Volume 85.3 fL (80.0-100.0); Mean Platelet Volume 10.5 fL (7.4-10.4); Monocytes # (Auto) 0.88 K/mcL (0.10-0.90); Neutrophils % (Auto) 88.7 % (38.0-78.0); Platelet Count 376 K/mcL (140-440); RBC 4.69 M/mcL (3.59-5.38); Red Cell Distribution Width 13.3 % (11.5-14.5); WBC 21.9 K/mcL (4.5-11.0)
[2021-05-21 07:33] LABS: Blood Urea Nitrogen 8 mg/dL (8-23); Carbon Dioxide 23 mmol/L (22-30); Chloride 96 mmol/L (96-108); Glomerular Filtration Rate 90; Glucose 131 mg/dL (70-105)
[2021-05-21] MEDS: PANTOPRAZOLE 40 MG VIAL IV SCH ×2 (07:49→20:35)
[2021-05-21] MEDS: PROMETHAZINE 25 MG/ML VIAL IV PRN ×2 (07:49→23:07)
[2021-05-21] MEDS: LEVOTHYROXINE 25 MCG TABLET PO SCH (07:50)
[2021-05-21] MEDS: LEVOTHYROXINE SODIUM 112 MCG TABLET PO SCH (07:50)
[2021-05-21] MEDS ORDERED: HYDROCHLOROTHIAZIDE 25 MG TABLET PO SCH (09:00)
[2021-05-21] MEDS ORDERED: NON FORMULARY MEDICATION 1 DOSE MISCELL (Levothyroxine 137 mcg tablet) PO SCH (09:00)
[2021-05-21] MEDS ORDERED: MAG HYDROX/AL HYDROX/SIMETH 30 ML ORAL.SUSP PO PRN (10:29)
[2021-05-21] MEDS: DEXTROSE 5%-1/2NS W/20MEQ KCL 1,000 ML IV SCH (11:01)
--- NOTE | 2021-05-21 11:05 | General Surgery Progress Note ---
SUBJECTIVE Subjective Patient information: Note initiated : 05/21/21 at 10:57 am Service Date, if different from initiated Date: [] Patient: Naz Jeffries 71 y/o F admitted on 05/19/21 for RUQ Pain. Chief Complaint: [POD #3 Lap Appendectomy] Issues with nausea and vomiting continue, unbable to keep liquids down. Is passing regular amounts of gas, no BM yet Pain is minimal Constitutional Vitals: Vital Signs Temp Pulse Resp BP Pulse Ox 98.1 F 85 16 156/84 92 05/21/21 07:38 05/21/21 07:38 05/21/21 07:38 05/21/21 07:38 05/21/21 07:50 Period Temp Pulse Resp BP Sys/Farr Pulse Ox Last 24 Hr 96.9 F-99.3 F 76-85 16-20 127-157/61-84 91-93 Intake and Output 05/20/21 05/21/21 05/21/21 21:59 05:59 13:59 Intake Total 1200 280 50 Output Total 680 730 350 Balance 520 -450 -300 Weight 239 lb 8 oz Intake & Output: Intake & Output 05/20/21 05/21/21 05/21/21 21:59 05:59 13:59 Intake Total 1200 280 50 Output Total 680 730 350 Balance 520 -450 -300 Weight 239 lb 8 oz Intake: IV 1050 250 50 Dextrose 5%-1/2Ns W/20Meq KCl 1 1000 ,000 ml @ 100 mls/hr IV .Q10H DEVIN Rx#:[id number] Zosyn 3.375 gm In Dextrose 5% 50 50 50 in Water 50 ml @ 100 mls/hr IV Q6H DEVIN Rx#:[id number] Oral 150 30 Output: Drainage 90 Abdomen 90 Drainage 90 330 190 Abdomen 90 330 190 Void Amount 200 100 160 Emesis 300 300 Other: Meal Lunch Percent of Meal Consumed 25% Feeding Ability Independent Urine Appearance Clear Clear Urine Color Dark Yellow Dark Lupe Urine Odor Strong Strong # Unmeasured Emesis 1 Exam: Fully awake and conversant, non toxic in appearance Head Head exam: Present atraumatic and normocephalic Respiratory Additional comments: normal respiratory effort without distress Cardiovascular Cardiovascular exam: Present RRR GI/Abdominal Additional comments: soft and seems non distended but obese, drain is benign serous, non enteric or purulent, minimal tenderness Extremities Exam Additional comments: appear normal and well perfused A/P Narrative A/P Narrative: POD #3 Lap Appendectomy for Necrotic gangrenous Appendicitis Issues with nausea and oral intake - is having some bowel function but concern for ileus vs partial SBO remains Check plain films today - may end up needing Abdominal CT Hold dilaudid and change ABs with ? causative factors Try to be up and OOB more today with small clear sips only Will consider NGT if substantial SB distension Issues discussed and reviewed with patient at length this AM Time Spent With Patient Time: Total time spent is greater than 50% in coordination of care (as documented) at patient's floor/unit and/or counseling patient:
[2021-05-21] MEDS: HYDROCHLOROTHIAZIDE 25 MG TABLET PO SCH (11:27)
[2021-05-21] MEDS: CARVEDILOL 12.5 MG TABLET PO SCH (11:27)
[2021-05-21] MEDS: CIPROFLOXACIN 400 MG/200 ML BAG IV SCH ×2 (11:29→20:35)
--- NOTE | 2021-05-21 12:52 | XRay Report ---
CLINICAL INFORMATION: Eval sbo vs ileus three post appendectomy COMPARISON: Preoperative abdomen and pelvic CT 05/18/2021 FINDINGS: A few loops of small bowel in the central abdomen are mildly dilated with relative decompression of the distal small bowel and colon. There is no pathologic calcification, free air or soft tissue mass. IMPRESSION: Possible developing mid small bowel obstruction. Interpreted and Authenticated by: Teja Sheets 05/21/21
[2021-05-21] MEDS: MEROPENEM 0.5 GM in 0.9 % SODIUM CHLORIDE 50 ML IV SCH ×3 (13:50→23:40)
[2021-05-21] MEDS: DEXTROSE 5%-LR 1,000 ML IV SCH ×2 (13:50→19:23)
[2021-05-21] MEDS ORDERED: KETOROLAC 15 MG/ML VIAL IV PRN (17:55)
[2021-05-22] MEDS: DEXTROSE 5%-LR 1,000 ML IV SCH ×3 (01:09→21:28)
[2021-05-22] MEDS: ACETAMINOPHEN 325 MG TABLET PO SCH ×3 (03:15→19:01)
[2021-05-22] MEDS: METOCLOPRAMIDE 10 MG/2 ML VIAL IV SCH ×3 (05:44→18:57)
[2021-05-22] MEDS: 0.9 % SODIUM CHLORIDE 10 ML SYRINGE IV SCH ×3 (05:44→21:25)
[2021-05-22] MEDS: MEROPENEM 0.5 GM in 0.9 % SODIUM CHLORIDE 50 ML IV SCH ×3 (05:44→19:00)
--- NOTE | 2021-05-22 06:32 | XRay Report ---
CLINICAL INFORMATION: Eval ? SBO NG placement COMPARISON: None. FINDINGS: NG tube overlies the gastric fundus. The stomach and proximal small bowel remain moderately dilated with decompressed distal small bowel and colon. Findings the bowel with mid small bowel obstruction. Surgical drain overlies the pelvic region. There is no free air, soft tissue mass, organomegaly or pathologic calcification. IMPRESSION: Partial mid small bowel obstruction. NG tube overlying the gastric fundus. Interpreted and Authenticated by: Teja Sheets 05/22/21
[2021-05-22 06:40] LABS: Hematocrit 37.5 % (34.1-44.9); Hemoglobin 12.7 g/dL (11.2-15.7); Mean Corpuscular HGB Conc 33.9 g/dL (31.0-36.0); Mean Platelet Volume 10.5 fL (7.4-10.4); Platelet Count 395 K/mcL (140-440); RBC 4.41 M/mcL (3.59-5.38); Red Cell Distribution Width 13.2 % (11.5-14.5); WBC 14.2 K/mcL (4.5-11.0)
[2021-05-22 07:05] LABS: Blood Urea Nitrogen 6 mg/dL (8-23); Calcium 8.3 mg/dL (8.6-10.4); Carbon Dioxide 25 mmol/L (22-30); Chloride 99 mmol/L (96-108); Glomerular Filtration Rate 90; Glucose 129 mg/dL (70-105)
[2021-05-22] MEDS ORDERED: IOPAMIDOL 100 ML BOTTLE IV ONE (08:37)
[2021-05-22] MEDS: PANTOPRAZOLE 40 MG VIAL IV SCH ×2 (08:50→21:19)
[2021-05-22] MEDS: LEVOTHYROXINE 25 MCG TABLET PO SCH (08:51)
[2021-05-22] MEDS: LEVOTHYROXINE SODIUM 112 MCG TABLET PO SCH (08:51)
--- NOTE | 2021-05-22 09:19 | EKG ---
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
[2021-05-22] MEDS: CIPROFLOXACIN 400 MG/200 ML BAG IV SCH ×2 (09:31→21:28)
[2021-05-22] MEDS: HYDROCHLOROTHIAZIDE 25 MG TABLET PO SCH (09:35)
[2021-05-22] MEDS: CARVEDILOL 12.5 MG TABLET PO SCH (09:35)
--- NOTE | 2021-05-22 10:16 | General Surgery Progress Note ---
SUBJECTIVE Subjective Patient information: Note initiated : 05/22/21 at 10:09 am Service Date, if different from initiated Date: [] Patient: Naz Jeffries 71 y/o F admitted on 05/19/21 for RUQ Pain. Chief Complaint: [POD #4 Lap Appendectomy] Large volume emesis in the middle of the night, NGT placed - films this AM consistent with mid Small Bowel Obstruction. Other than the nausea and vomiting, she has felt well without substantial abdominal pain. Constitutional Vitals: Vital Signs Temp Pulse Resp BP Pulse Ox 98.2 F 69 16 146/82 94 05/22/21 07:33 05/22/21 07:33 05/22/21 07:33 05/22/21 07:33 05/22/21 07:33 Period Temp Pulse Resp BP Sys/Farr Pulse Ox Last 24 Hr 98 F-99.3 F 69-86 16-18 140-158/78-86 93-97 Intake and Output 05/21/21 05/22/21 05/22/21 20:59 05:59 13:59 Intake Total 50 Output Total 225 Balance -175 Weight Intake & Output: Intake & Output 05/21/21 05/22/21 05/22/21 20:59 05:59 13:59 Intake Total 50 Output Total 225 Balance -175 Weight Intake: IV 50 Dextrose 5%-Lactated Ringers 1, 000 ml @ 125 mls/hr IV .Q8H DEVIN Rx#:[id number] Merrem 0.5 gm In Sodium 50 Chloride 0.9% 50 ml @ 100 mls/ hr IV Q6H DEVIN Rx#:[id number] Oral Tube Feeding 0 Output: Drainage Abdomen Void Amount 225 Emesis Other: Urine Appearance Clear Urine Color Light Lupe Urine Odor Strong # Voids General appearance: cooperative and no acute distress Respiratory Additional comments: normal respiratory effort without distress Cardiovascular Cardiovascular exam: Present RRR GI/Abdominal Additional comments: soft and non tender, drain is benign serous drainage, non enteric and non purulent Extremities Exam Additional comments: well perfused A/P Narrative A/P Narrative: POD #4 Lap Appendectomy Post Op SBO of ? Etiology Awaiting final CT results Continue NGT drainage, IV ABs, IVF, NPO except meds Issues discussed at length with her - will consider attempt at SBFT to see if that opens things up with a volume contrast load and, if not, then she'll likely require exploration in the next 24-48 hours Time Spent With Patient Time: Total time spent is greater than 50% in coordination of care (as documented) at patient's floor/unit and/or counseling patient:
--- NOTE | 2021-05-22 13:43 | Cat Scan Report ---
CLINICAL INFORMATION: Status post appendectomy. Abdominal pain and distention. Evaluate for small bowel obstruction COMPARISON: Preoperative abdomen and pelvic CT 05/18/2021 TECHNIQUE: Following enteric contrast, 80 cc of Isovue-370 were injected intravenously, and 60 seconds later, 0.625 mm helical slices were obtained from the mid heart through the subtrochanteric regions. Following reconstruction, 2.5 mm sagittal, coronal and axial reformatted images were processed and reviewed at bone, lung and soft tissue windows. Five minutes later, 0.625 mm helical slices were obtained from the mid heart through the kidneys and viewed at soft tissue windows.The exam was performed using radiation dose optimization techniques including, but not limited to, automated exposure control, adjustment of the mA and/or kV according to patient size and use of iterative reconstruction technique. FINDINGS: Moderate subsegmental atelectasis developed in the lung bases. No effusions. The visualized heart is grossly normal. Moderate hiatal hernia consisting of the gastric fundus appreciated. Abdominal images show the gallbladder is unremarkable. There is mild dilatation of the suprapancreatic common bileduct-9 mm to 2.2 cm periampullary diverticulum may extrinsically compressed intrapancreatic common bile duct. The liver, adrenal glands, spleen, pancreas and aorta, including aortic branches, are normal in size, configuration and attenuation without focal lesion. A 6.1 cm cyst arising from the anterior mid right kidney. It has a single septation in the anterior portion, but no solid components. The remainder of both kidneys is normal. There is no free air or adenopathy. Pelvic images show normal urinary bladder. Hysterectomy and oophorectomy changes noted. The appendix is been surgically removed. There is a small amount of edema and free fluid in the former region of the appendix also edema is seen in the [place] fascia anterior abdominal wall. Surgical excision in the right lower quadrant contains a small amount of gas and air as expected. The stomach, duodenum and jejunum are moderately dilated to the level of its stricture in the central mesentery cavity on axial image 123. The distal small bowel is decompressed there is minimal stool seen within the colon. A surgical drain is seen in the left pelvic region. Bone windows show no osseous abnormality. IMPRESSION: 1. High-grade small bowel obstruction of the mid jejunum likely due to a stricture or adhesion. No evidence of third spacing or perforation. 2. Status post appendectomy-typical postoperative appearance with small amounts of fluid in the pericecal region. 3. Moderate hiatal hernia 4. 2.2 cm periampullary diverticulum. This may result in mild extrinsic compression of the intrapancreatic common bile duct. Suprapancreatic bile duct is mildly dilated-9 mm Interpreted and Authenticated by: Teja Sheets 05/22/21
--- NOTE | 2021-05-22 17:49 | XRay Report ---
CLINICAL INFORMATION: Check NG tube placement COMPARISON: None. FINDINGS: NG tube overlies the gastric antrum in satisfactory position. Few loops of mildly dilated small bowel the upper abdomen are compatible high-grade mid jejunal obstruction seen on CT. No free air. IMPRESSION: NG tube in satisfactory position. Partial mid small bowel obstruction Interpreted and Authenticated by: Teja Sheets 05/22/21
[2021-05-22] MEDS: BENZOCAINE/MENTHOL 1 LOZENGE PO PRN (21:18)
[2021-05-23] MEDS: BENZOCAINE/MENTHOL 1 LOZENGE PO PRN ×2 (00:19→04:49)
[2021-05-23] MEDS: METOCLOPRAMIDE 10 MG/2 ML VIAL IV SCH ×4 (00:27→17:50)
[2021-05-23] MEDS: MEROPENEM 0.5 GM in 0.9 % SODIUM CHLORIDE 50 ML IV SCH ×4 (00:27→17:50)
[2021-05-23] MEDS: ACETAMINOPHEN 325 MG TABLET PO SCH ×3 (01:40→17:37)
[2021-05-23] MEDS: DEXTROSE 5%-LR 1,000 ML IV SCH ×3 (03:10→20:07)
[2021-05-23] MEDS: 0.9 % SODIUM CHLORIDE 10 ML SYRINGE IV SCH ×3 (05:06→20:15)
[2021-05-23 06:18] LABS: Hematocrit 37.3 % (34.1-44.9); Hemoglobin 12.2 g/dL (11.2-15.7); Mean Cell Volume 86.3 fL (80.0-100.0); Mean Corpuscular HGB Conc 32.7 g/dL (31.0-36.0); Mean Platelet Volume 10.1 fL (7.4-10.4); Platelet Count 376 K/mcL (140-440); RBC 4.32 M/mcL (3.59-5.38); Red Cell Distribution Width 13.2 % (11.5-14.5); WBC 12.1 K/mcL (4.5-11.0)
[2021-05-23 06:39] LABS: Blood Urea Nitrogen 5 mg/dL (8-23); Calcium 8.1 mg/dL (8.6-10.4); Carbon Dioxide 25 mmol/L (22-30); Chloride 103 mmol/L (96-108); Glomerular Filtration Rate 90; Glucose 101 mg/dL (70-105)
[2021-05-23] MEDS: LEVOTHYROXINE 25 MCG TABLET PO SCH (08:06)
[2021-05-23] MEDS: LEVOTHYROXINE SODIUM 112 MCG TABLET PO SCH (08:06)
[2021-05-23] MEDS: PANTOPRAZOLE 40 MG VIAL IV SCH ×2 (09:02→20:10)
[2021-05-23] MEDS: CIPROFLOXACIN 400 MG/200 ML BAG IV SCH ×2 (09:02→20:14)
[2021-05-23] MEDS ORDERED: DIATRIZOATE MEGLU/DIATRIZO SOD 120 ML BOTTLE PO ONE (12:55)
--- NOTE | 2021-05-23 13:55 | General Surgery Progress Note ---
SUBJECTIVE Subjective Patient information: Note initiated : 05/23/21 at 1:52 pm Service Date, if different from initiated Date: [] Patient: Naz Jeffries 71 y/o F admitted on 05/19/21 for RUQ Pain. Chief Complaint: [POD #5 Lap Appendectomy with post op SBO] Underwent SBFT this am - has had large BMs this am in response to large contrast load reaching the colon but formal study results or prelim report unavailable at this time No pain, hungry, wanting NGT out Constitutional Vitals: Vital Signs Temp Pulse Resp BP Pulse Ox 97.4 F 88 16 151/68 93 05/23/21 12:00 05/23/21 12:00 05/23/21 12:00 05/23/21 12:00 05/23/21 12:00 Period Temp Pulse Resp BP Sys/Farr Pulse Ox Last 24 Hr 97.4 F-98.6 F 80-88 16-22 132-159/68-80 90-94 Intake and Output 05/22/21 05/23/21 05/23/21 21:59 05:59 13:59 Intake Total 50 370 1250 Output Total 1400 700 Balance -1350 -330 1250 Weight 223 lb Intake & Output: Intake & Output 05/22/21 05/23/21 05/23/21 21:59 05:59 13:59 Intake Total 50 370 1250 Output Total 1400 700 Balance -1350 -330 1250 Weight 223 lb Intake: IV 50 250 1250 Dextrose 5%-Lactated Ringers 1, 1000 000 ml @ 125 mls/hr IV .Q8H DEVIN Rx#:[id number] Merrem 0.5 gm In Sodium 50 50 50 Chloride 0.9% 50 ml @ 100 mls/ hr IV Q6H DEVIN Rx#:[id number] Oral 120 Tube Feeding 0 0 Output: Gastric Drainage 1400 200 Left Nare NG/OG 1400 200 Void Amount 500 Other: Urine Appearance Clear Urine Color Bright Yellow Urine Odor Normal Stool Size Large Stool Color Brown Stool Consistency Liquid # Voids 1 # Bowel Movements 1 Exam: looks well, without issue, fully conversant Respiratory Additional comments: normal respiratory efffort without distress Cardiovascular Cardiovascular exam: Present normal rate and rhythm and RRR Extremities Exam Additional comments: well perfused A/P Narrative A/P Narrative: POD #5 Lap Appendectomy with post op SBO SBFT results pending but large volume stool output is a positive finding Leave NGT for now Await final study results Time Spent With Patient Time: Total time spent is greater than 50% in coordination of care (as documented) at patient's floor/unit and/or counseling patient:
--- NOTE | 2021-05-23 14:04 | XRay Report ---
CLINICAL INFORMATION: High-grade mid jejunal obstruction. TECHNIQUE: Gastrografin was infused through indwelling NG tube and serial imaging was obtained over four hours the abdomen and pelvis time: FINDINGS: Small hiatal hernia noted. The stomach, duodenum and jejunum are mildly dilated to the level of the obstruction and the mid jejunum. The small bowel distal to the obstruction is smaller caliber. Small bowel transit time is approximately two hours. IMPRESSION: Mild partial mid jejunal obstruction due to adhesion or stricture. Small bowel transit time approximately two hours Interpreted and Authenticated by: Teja Sheets 05/23/21
[2021-05-23] MEDS: HYDROCHLOROTHIAZIDE 25 MG TABLET PO SCH (14:50)
[2021-05-23] MEDS: CARVEDILOL 12.5 MG TABLET PO SCH (14:50)
[2021-05-24] MEDS: MEROPENEM 0.5 GM in 0.9 % SODIUM CHLORIDE 50 ML IV SCH ×5 (00:21→23:40)
[2021-05-24] MEDS: METOCLOPRAMIDE 10 MG/2 ML VIAL IV SCH ×5 (00:57→23:40)
[2021-05-24] MEDS: ACETAMINOPHEN 325 MG TABLET PO SCH ×3 (02:58→18:56)
[2021-05-24] MEDS: 0.9 % SODIUM CHLORIDE 10 ML SYRINGE IV SCH ×4 (05:57→23:40)
[2021-05-24] MEDS: DEXTROSE 5%-LR 1,000 ML IV SCH ×4 (06:08→20:46)
[2021-05-24] MEDS: LEVOTHYROXINE 25 MCG TABLET PO SCH (07:37)
[2021-05-24] MEDS: LEVOTHYROXINE SODIUM 112 MCG TABLET PO SCH (07:38)
[2021-05-24 07:48] LABS: Hematocrit 36.1 % (34.1-44.9); Hemoglobin 12.1 g/dL (11.2-15.7); Mean Cell Volume 85.7 fL (80.0-100.0); Mean Corpuscular HGB Conc 33.5 g/dL (31.0-36.0); Platelet Count 365 K/mcL (140-440); RBC 4.21 M/mcL (3.59-5.38); Red Cell Distribution Width 13.3 % (11.5-14.5); WBC 9.9 K/mcL (4.5-11.0)
[2021-05-24 08:05] LABS: Blood Urea Nitrogen 5 mg/dL (8-23); Calcium 8.3 mg/dL (8.6-10.4); Carbon Dioxide 26 mmol/L (22-30); Chloride 104 mmol/L (96-108); Glomerular Filtration Rate 96; Glucose 114 mg/dL (70-105)
[2021-05-24] MEDS ORDERED: POTASSIUM CHLORIDE 40 MEQ in DEXTROSE 5% IN WATER 500 ML IV ONE (08:22)
[2021-05-24] MEDS: PANTOPRAZOLE 40 MG VIAL IV SCH ×2 (08:29→22:03)
[2021-05-24] MEDS: CIPROFLOXACIN 400 MG/200 ML BAG IV SCH ×2 (08:47→20:47)
--- NOTE | 2021-05-24 09:39 | XRay Report ---
CLINICAL INFORMATION: eval for SBO and contrast passage COMPARISON: 05/23/2021 FINDINGS: NG tube remain in stable satisfactory position with the tip in the gastric antrum. Stomach and duodenum are completely decompressed. The jejunum shows mild dilatation. Only small amounts of gas are seen in the ileum and colon. Enteric contrast, administered for yesterday's small bowel follow through, has almost totally evacuated with minimal amounts in the right and rectosigmoid colon. IMPRESSION: Partial small bowel obstruction pattern-improving Interpreted and Authenticated by: Teja Sheets 05/24/21
[2021-05-24] MEDS: HYDROCHLOROTHIAZIDE 25 MG TABLET PO SCH (10:58)
[2021-05-24] MEDS: CARVEDILOL 12.5 MG TABLET PO SCH (10:58)
--- NOTE | 2021-05-24 14:08 | General Surgery Progress Note ---
SUBJECTIVE Subjective Patient information: Note initiated : 05/24/21 at 2:01 pm Service Date, if different from initiated Date: [] Patient: Naz Jeffries 71 y/o F admitted on 05/19/21 for RUQ Pain. Chief Complaint: [POD #6 Lap Appendectomy complicated by post op ileus/partial SBO] Overall continues to look and feel much improved. She denies any pain at this time and otherwise feels well. Has many stools since SBFT yesterday but not passing much gas. Constitutional Vitals: Vital Signs Temp Pulse Resp BP Pulse Ox 98.1 F 84 20 172/79 93 05/24/21 12:35 05/24/21 12:35 05/24/21 12:35 05/24/21 12:35 05/24/21 12:35 Period Temp Pulse Resp BP Sys/Farr Pulse Ox Last 24 Hr 97.8 F-98.7 F 84-93 16-20 146-172/64-79 91-93 Intake and Output 05/24/21 05/24/21 05/24/21 05:59 13:59 21:59 Intake Total 1450 300 Output Total 200 475 Balance 1250 -175 Weight 229 lb Patient Weight 05/25/21 05:59 Weight 229 lb Intake & Output: Intake & Output 05/24/21 05/24/21 05/24/21 05:59 13:59 21:59 Intake Total 1450 300 Output Total 200 475 Balance 1250 -175 Weight 229 lb Intake: IV 1050 300 Dextrose 5%-Lactated Ringers 1, 1000 000 ml @ 125 mls/hr IV .Q8H DEVIN Rx#:[id number] Merrem 0.5 gm In Sodium 50 100 Chloride 0.9% 50 ml @ 100 mls/ hr IV Q6H DEVIN Rx#:[id number] Oral 400 Tube Feeding 0 Output: Void Amount 100 Urine/Stool Mix 100 475 Other: Urine Appearance Clear Urine Color Brown Yellow Brown Urine Odor Normal Stool Color Brown Stool Consistency Loose Exam: She looks well and is conversant Head Head exam: Present atraumatic, normal inspection and normocephalic Eye Additional comments: normal appearance Respiratory Additional comments: normal respiratory effort without distress Cardiovascular Cardiovascular exam: Present normal rate and rhythm and RRR GI/Abdominal Additional comments: soft and non tender, seems non distended, trocar sites ok Extremities Exam Additional comments: well perfused Neurological Exam Additional comments: grossly intact Psychiatric Additional comments: normal affect A/P Assessment and plan (1) Acute appendicitis: Status: Acute Narrative A/P Narrative: POD #6 Lap Appendectomy Overall looks much improved Resolving partial SBO/Ileus? SBFT yesterday demonstrated essentially normal large bolus to colon transit time Leave NGT for now, ok to have clears, ambulate much of the day, increase activity Replete K+ Time Spent With Patient Time: Total time spent is greater than 50% in coordination of care (as documented) at patient's floor/unit and/or counseling patient:
[2021-05-24] MEDS: DEXTROSE 5%-1/2NS W/20MEQ KCL 1,000 ML IV SCH (20:47)
[2021-05-25] MEDS: ACETAMINOPHEN 325 MG TABLET PO SCH ×3 (02:40→18:12)
[2021-05-25] MEDS: MEROPENEM 0.5 GM in 0.9 % SODIUM CHLORIDE 50 ML IV SCH ×4 (05:26→23:43)
[2021-05-25] MEDS: METOCLOPRAMIDE 10 MG/2 ML VIAL IV SCH ×4 (05:26→23:43)
[2021-05-25] MEDS: DEXTROSE 5%-1/2NS W/20MEQ KCL 1,000 ML IV SCH ×3 (05:27→23:16)
[2021-05-25] MEDS: 0.9 % SODIUM CHLORIDE 10 ML SYRINGE IV SCH ×4 (05:27→23:43)
[2021-05-25 06:49] LABS: Basophils # (Auto) 0.08 K/mcL (0.00-0.30); Eosinophils # (Auto) 0.35 K/mcL (0.00-0.70); Eosinophils % (Auto) 4.2 % (0.0-7.0); Hematocrit 34.6 % (34.1-44.9); Hemoglobin 11.3 g/dL (11.2-15.7); Lymphocytes # (Auto) 1.91 K/mcL (1.50-4.80); Mean Cell Volume 85.9 fL (80.0-100.0); Mean Corpuscular HGB Conc 32.7 g/dL (31.0-36.0); Monocytes # (Auto) 0.58 K/mcL (0.10-0.90); Neutrophils % (Auto) 64.8 % (38.0-78.0); Platelet Count 326 K/mcL (140-440); RBC 4.03 M/mcL (3.59-5.38); Red Cell Distribution Width 13.3 % (11.5-14.5); WBC 8.3 K/mcL (4.5-11.0)
[2021-05-25 07:14] LABS: Blood Urea Nitrogen 4 mg/dL (8-23); Calcium 8.2 mg/dL (8.6-10.4); Carbon Dioxide 28 mmol/L (22-30); Chloride 100 mmol/L (96-108); Glomerular Filtration Rate 96; Glucose 103 mg/dL (70-105)
--- NOTE | 2021-05-25 09:00 | XRay Report ---
CLINICAL INFORMATION: Abdominal small bowel obstruction COMPARISON: None. FINDINGS: NG tube remains in stable satisfactory position. The GI tract is almost totally decompressed. Small amount of air is seen within a single mildly dilated small bowel loop in the left mid abdomen. There is also small amounts of gas in the stomach and duodenum. No evidence of recurrent obstruction. There is no free air, soft tissue mass, organomegaly or pathologic calcification. IMPRESSION: Normal abdomen. Decompressed urinary tract Interpreted and Authenticated by: Teja Sheets 05/25/21
[2021-05-25] MEDS: PANTOPRAZOLE 40 MG VIAL IV SCH ×2 (09:04→21:18)
[2021-05-25] MEDS: HYDROCHLOROTHIAZIDE 25 MG TABLET PO SCH (09:04)
[2021-05-25] MEDS: LEVOTHYROXINE SODIUM 112 MCG TABLET PO SCH (09:04)
[2021-05-25] MEDS: CIPROFLOXACIN 400 MG/200 ML BAG IV SCH ×2 (09:04→21:18)
[2021-05-25] MEDS: LEVOTHYROXINE 25 MCG TABLET PO SCH (09:04)
[2021-05-25] MEDS: CARVEDILOL 12.5 MG TABLET PO SCH (09:04)
--- NOTE | 2021-05-25 12:11 | General Surgery Progress Note ---
SUBJECTIVE Subjective Patient information: Note initiated : 05/25/21 at 12:06 pm Service Date, if different from initiated Date: [] Patient: Naz Jeffries 71 y/o F admitted on 05/19/21 for RUQ Pain. Chief Complaint: [POD #7 Lap Appendectomy with post op ileus/? partial SBO ] Continues to feel better. No emesis. ? Some flatus. No pain Constitutional Vitals: Vital Signs Temp Pulse Resp BP Pulse Ox 97.9 F 74 20 159/78 94 05/25/21 11:38 05/25/21 11:38 05/25/21 11:38 05/25/21 11:38 05/25/21 11:38 Period Temp Pulse Resp BP Sys/Farr Pulse Ox Last 24 Hr 97.9 F-99.2 F 74-87 12-20 153-177/71-85 92-94 Intake and Output 05/24/21 05/25/21 05/25/21 21:59 05:59 13:59 Intake Total 5629 520 1476 Output Total 086 910 7096 Balance 990 -850 200 Weight 230 lb Intake & Output: Intake & Output 05/24/21 05/25/21 05/25/21 21:59 05:59 13:59 Intake Total 0721 884 9721 Output Total 102 381 7460 Balance 990 -850 200 Weight 230 lb Intake: IV 1770 50 1250 Dextrose 5%-1/2Ns W/20Meq KCl 1 1000 ,000 ml @ 100 mls/hr IV .Q10H DEVIN Rx#:[id number] Dextrose 5%-Lactated Ringers 1, 1000 000 ml @ 125 mls/hr IV .Q8H DEVIN Rx#:[id number] Merrem 0.5 gm In Sodium 50 50 50 Chloride 0.9% 50 ml @ 100 mls/ hr IV Q6H DEVIN Rx#:[id number] Potassium Chloride 40 Meq In 520 Dextrose 5% in Water 500 ml @ 130 mls/hr IV ONCE ONE Rx#: [id number] Oral 120 50 Tube Feeding 0 0 Output: Gastric Drainage 800 600 Left Nare NG/OG 800 600 Void Amount 100 Urine/Stool Mix 310 871 0107 Exam: she looks well, non toxic Respiratory Additional comments: normal respiratory effort without distress Cardiovascular Cardiovascular exam: Present normal rate and rhythm and RRR GI/Abdominal Additional comments: soft and non tender, non distended, trocar sites look good Extremities Exam Additional comments: well perfused A/P Assessment and plan (1) Acute appendicitis: Assessment and plan: POD #7 Lap Appendectomy Seems improved overall with partial SBO/ileus largely resolved radiographically Clamp NGT and start clears Increase ambulation as much as possible Check venous duplex study bilaterally given family DVT history, length of stay and her expressed concern Status: Acute Time Spent With Patient Time: Total time spent is greater than 50% in coordination of care (as documented) at patient's floor/unit and/or counseling patient:
[2021-05-26] MEDS: DEXTROSE 5%-1/2NS W/20MEQ KCL 1,000 ML IV SCH (02:57)
[2021-05-26] MEDS: ACETAMINOPHEN 325 MG TABLET PO SCH ×2 (02:58→09:54)
[2021-05-26] MEDS: METOCLOPRAMIDE 10 MG/2 ML VIAL IV SCH ×2 (05:23→12:02)
[2021-05-26] MEDS: 0.9 % SODIUM CHLORIDE 10 ML SYRINGE IV SCH ×2 (05:23→13:59)
[2021-05-26] MEDS: MEROPENEM 0.5 GM in 0.9 % SODIUM CHLORIDE 50 ML IV SCH ×2 (05:23→12:04)
[2021-05-26 07:01] LABS: Blood Urea Nitrogen 2 mg/dL (8-23); Calcium 8.2 mg/dL (8.6-10.4); Carbon Dioxide 26 mmol/L (22-30); Chloride 99 mmol/L (96-108); Glomerular Filtration Rate 103; Glucose 101 mg/dL (70-105)
[2021-05-26] MEDS: LEVOTHYROXINE 25 MCG TABLET PO SCH (08:01)
[2021-05-26] MEDS: LEVOTHYROXINE SODIUM 112 MCG TABLET PO SCH (08:01)
[2021-05-26] MEDS: CIPROFLOXACIN 400 MG/200 ML BAG IV SCH (08:02)
[2021-05-26] MEDS: CARVEDILOL 12.5 MG TABLET PO SCH (08:53)
[2021-05-26] MEDS: PANTOPRAZOLE 40 MG VIAL IV SCH (08:53)
[2021-05-26] MEDS: HYDROCHLOROTHIAZIDE 25 MG TABLET PO SCH (08:54)
--- NOTE | 2021-05-26 09:35 | General Surgery Progress Note ---
SUBJECTIVE Subjective Patient information: Note initiated : 05/26/21 at 9:32 am Service Date, if different from initiated Date: [] Patient: Naz Jeffries 71 y/o F admitted on 05/19/21 for RUQ Pain. Chief Complaint: [POD #8 Lap Appendectomy complicated by partial SBO/prolonged ileus] Much better today, feeling well and has done great with clears and NGT clamped - passing gas in good amounts and no pain Constitutional Vitals: Vital Signs Temp Pulse Resp BP Pulse Ox 98 F 72 16 158/74 95 05/26/21 07:42 05/26/21 07:42 05/26/21 07:42 05/26/21 07:42 05/26/21 07:55 Period Temp Pulse Resp BP Sys/Farr Pulse Ox Last 24 Hr 97.6 F-98.7 F 72-81 14-20 146-163/71-78 94-95 Intake and Output 05/25/21 05/26/21 05/26/21 21:59 05:59 13:59 Intake Total 1290 450 Output Total 800 0 Balance 490 450 Weight 230 lb 8 oz Intake & Output: Intake & Output 05/25/21 05/26/21 05/26/21 21:59 05:59 13:59 Intake Total 1290 450 Output Total 800 0 Balance 490 450 Weight 230 lb 8 oz Intake: IV 1050 300 Dextrose 5%-1/2Ns W/20Meq KCl 1 1000 ,000 ml @ 100 mls/hr IV .Q10H DEVIN Rx#:[id number] Merrem 0.5 gm In Sodium 50 100 Chloride 0.9% 50 ml @ 100 mls/ hr IV Q6H DEVIN Rx#:[id number] Oral 240 150 Tube Feeding 0 Output: Gastric Drainage 400 0 Left Nare NG/OG 400 0 Urine/Stool Mix 400 Other: Meal Dinner Percent of Meal Consumed 50% # Voids 1 General appearance: no acute distress Exam: looks well, NAD Respiratory Additional comments: Normal respiratory effort without distress Cardiovascular Cardiovascular exam: Present RRR GI/Abdominal Additional comments: soft and non distended, non tender, no mass, trocar sites ok NGT removed at the bedside A/P Narrative A/P Narrative: Doing well and much improved overall Advance Diet Increase activity Possibly home later today if tolerating a diet and otherwise doing well Time Spent With Patient Time: Total time spent is greater than 50% in coordination of care (as documented) at patient's floor/unit and/or counseling patient:
[2021-05-26] MEDS ORDERED: DEXTROSE 5%-1/2NS W/20MEQ KCL 1,000 ML IV SCH (09:36)
--- NOTE | 2021-05-26 10:34 | Ultrasound Report ---
CLINICAL INFORMATION: Leg pain COMPARISON: None. FINDINGS: The entire deep venous system, in both lower extremities, including the common femoral, superficial femoral, popliteal and paired trifurcation calf veins are easily compressible and show normal venous blood flow on color and spectral Doppler. No evidence of thrombus IMPRESSION: Negative exam - no evidence of deep vein thrombosis in the lower extremities. Interpreted and Authenticated by: Teja Sheets 05/26/21
--- NOTE | 2021-06-02 15:20 | Discharge Summary ---
DATE OF ADMISSION: 05/18/2021 DATE OF DISCHARGE: 05/26/2021 DATE OF ADMISSION: 05/18/2021 ADMISSION DIAGNOSIS: Acute appendicitis. DISCHARGE DIAGNOSIS: Acute appendicitis. ADMITTING PHYSICIAN: Ehsan Smith M.D. INDICATIONS FOR ADMISSION AND HOSPITAL COURSE: The patient is a 71-year-old female who presented to the emergency room at [facility] on 05/18/2021 with findings consistent with acute appendicitis. She only had pain for a fairly short period of time, roughly 12 hours or so at that point. CT scan was confirmatory. She was taken to the operating room where she was found to have a gangrenous, necrotic appendix with contamination in the area. She underwent an appendectomy and a drain was left in place as well. The details of this are dictated in a separate procedure note. Patient was returned to the floor after surgery where she initially did well. The following day, however, she began to develop vomiting and emesis which continued until an NG tube was placed. Medication adjustments were made and she underwent imaging which included some plain films with x-rays on 05/21/2021 and 05/22/[address] on 05/22/2021 which demonstrated findings consistent with a partial small bowel obstruction. NG tube had been placed as discussed and she was kept NPO. She improved over the next several days. An upper GI was done on 05/23/2021 which demonstrated no residual obstruction and fairly normal transit time through the colon. She continued to have high NG tube outputs, however, and intermittently vomit, but over the next several days gradually improved to the point that the NG tube was taken out, and she was started on clears and felt ready for discharge by 05/26/2021. Also of note, given family history of thromboembolic events and the fact that her sister had a DVT and from a PE, she requested that we do a venous duplex study of her legs to rule out any evidence of DVT which was completed on 05/26/2021 as well. It was negative for any evidence of that. PROCEDURES: 1. Laparoscopic appendectomy on 05/18/2021. 2. Small bowel follow-through on 05/23/2021. DISPOSITION: Patient is discharged home with followup to clinic. OTHER ISSUES: None. HUE:drew Job ID: [id number] Doc ID: [id number] Charis Barbour
== END 2021-05-26 15:55 | disposition home or self-care (01) | DRG 339 ==
LOC: ED 13:51 → SUR 18:32 → MEDSUR 18:32 → SUR 18:37
PROVIDERS: ADMIT Surgery Surgical Critical Care; ATTEND Surgery Surgical Critical Care